=== PATIENT | female | born 1935 | race Caucasian/White ===

== ENCOUNTER 2017-03-15 18:51 | Emergency (ER) | payer MEDICARE, OTHER ==
--- NOTE | 2017-03-15 20:15 | C.PDOC ---
History Of Present Illness The patient presents today with complaints of intermittent episodes of nausea, vomiting and decreased PO intake for the past month. Patient has a history of insulin dependent diabetes and her daughter serves as primary historian as the patient has dementia. The patient's daughter offers no other medical complaints. Time Seen by Provider: 03/15/17 20:14 Chief Complaint (Nursing): GI Problem History Per: Family History/Exam Limitations: clinical condition (dementia) Onset/Duration Of Symptoms: Intermittent Episodes (for a month) Current Symptoms Are (Timing): Still Present Associated Symptoms: Nausea, Vomiting, Loss Of Appetite. denies: Fever, Chills Recent travel outside of the [place]: No Abnormal Vaginal Bleeding: No Past Medical History Reviewed: Historical Data, Nursing Documentation, Vital Signs Vital Signs: Last Vital Signs Temp 97.6 F 03/15/17 21:45 Pulse 69 03/15/17 21:45 Resp 18 03/15/17 21:45 BP 159/80 H 03/15/17 21:45 Pulse Ox 98 03/15/17 21:45 - Medical History PMH: Anemia, Dementia, Depression, HTN, Hypercholesterolemia (hyperlipidemia), Hypothyroidism, Chronic Kidney Disease (CKD) Surgical History: No Surg Hx Family History: States: Unknown Family Hx - Social History Hx Alcohol Use: No Hx Substance Use: No Review Of Systems Constitutional: Negative for: Fever, Chills Gastrointestinal: Positive for: Nausea, Vomiting, Other (decreased PO intake) Physical Exam - Physical Exam Appears: Non-toxic, No Acute Distress Skin: Warm, Dry Head: Normacephalic Eye(s): bilateral: Normal Inspection Lips: Other (dry) Neck: Supple Chest: Symmetrical Cardiovascular: Rhythm Regular Respiratory: No Decreased Breath Sounds, No Accessory Muscle Use Gastrointestinal/Abdominal: Bowel Sounds, Soft, No Tenderness, Distention (mild) Extremity: No Deformity, No Swelling Neurological/Psych: No Oriented x3 (Awake, alert and oriented x 2) ED Course And Treatment - Laboratory Results Result Diagrams: 03/15/17 20:36 03/15/17 20:36 O2 Sat by Pulse Oximetry: 97 (RA) Pulse Ox Interpretation: Normal Progress Note: Labs, pepcid, zofran and IV fluids ordered Reevaluation Time: 23:11 Reassessment Condition: Improved Disposition Counseled Patient/Family Regarding: Studies Performed, Diagnosis, Need For Followup, Rx Given - Disposition Referrals: Nacho Pierre MD [Staff Provider] - Disposition: HOME/ ROUTINE Disposition Time: 20:15 Condition: FAIR Prescriptions: Ondansetron ODT [Zofran ODT] 1 odt PO BID PRN #10 odt PRN Reason: Nausea/Vomiting Instructions: Abdominal Pain (ED), Acute Nausea and Vomiting (ED), Diverticulosis (ED), Diverticulosis Diet (ED) Forms: [employer] (Dominican), Accompanied To ED By: Print Language: BENGALI - Clinical Impression Clinical Impression: Abdominal pain, Vomiting - Scribe Statement The provider has reviewed the documentation as recorded by the Sarabjit Carney Provider Attestation: All medical record entries made by the Sarabjit were at my direction and personally dictated by me. I have reviewed the chart and agree that the record accurately reflects my personal performance of the history, physical exam, medical decision making, and the department course for this patient. I have also personally directed, reviewed, and agree with the discharge instructions and disposition.
[2017-03-15] MEDS ORDERED: Sodium Chloride 0.9% 1,000 ML IV ONE (20:20)
[2017-03-15] MEDS ORDERED: Sodium Chloride 0.9% 1,000 ML ONE (20:37)
[2017-03-15 20:47] LABS: BASO % 0.5 % (0.0-2.0); EOS # 0.1 K/uL (0.0-0.7); EOS % 1.4 % (0.0-4.0); HEMATOCRIT 31.2 % (34.0-47.0); LYMPH # 2.1 K/uL (1.0-4.3); LYMPH % 25.4 % (20.0-40.0); MEAN CELL VOLUME 92.9 fL (81.0-99.0); MEAN CORPUSCULAR HEMOGLOBIN 32.1 pg (27.0-31.0); MEAN CORPUSCULAR HGB CONC 34.6 g/dL (33.0-37.0); MEAN PLATELET VOLUME 8.3 fL (7.2-11.7); MONO # 0.5 K/uL (0.0-0.8); MONO % 6.2 % (0.0-10.0); RED CELL DISTRIBUTION WIDTH 15.2 % (11.5-14.5); WHITE BLOOD COUNT 8.2 K/uL (4.8-10.8)
[2017-03-15 20:56] LABS: CHLORIDE 98 mmol/L (98-107); SODIUM 138 mmol/L (132-148)
[2017-03-15 20:59] LABS: ALB/GLOB RATIO 1.3 (1.0-2.1); ALKALINE PHOSPHATASE 69 U/L (38-126); ALT/SGPT 20 U/L (9-52); AST/SGOT 21 U/L (14-36); BILIRUBIN,TOTAL 0.6 mg/dL (0.2-1.3); BLOOD UREA NITROGEN 28 mg/dL (7-17); CALCIUM 9.2 mg/dl (8.6-10.4); CARBON DIOXIDE 25 mmol/L (22-30); GFR AFRICAN-AMERICAN 33; GLUCOSE,RANDOM 107 mg/dL (65-105); TOTAL PROTEIN 7.6 g/dL (6.3-8.3)
[2017-03-15 21:34] LABS: RBC URINE < 1 /hpf (0-3); URINE BILIRUBIN NEGATIVE (NEGATIVE); URINE BLOOD NEGATIVE (NEGATIVE); URINE COLOR Yellow (YELLOW); URINE GLUCOSE (UA) NORMAL (Normal); URINE KETONE NEGATIVE (NEGATIVE); URINE LEUKOCYTE ESTERASE NEG Leu/uL (Negative); URINE PROTEIN NEGATIVE (NEGATIVE); URINE UROBILINOGEN NORMAL mg/dL (0.2-1.0); WBC URINE 1 /hpf (0-5)
[2017-03-15 21:56] VITALS: TEMP 97.6
--- NOTE | 2017-03-15 22:56 | CT ---
EXAM: CT Abdomen and Pelvis Without Intravenous Contrast CLINICAL HISTORY: 81 years old, female; Pain; Abdominal pain; Generalized; Additional info: Abd pain, vomiting diabetic TECHNIQUE: Axial computed tomography images of the abdomen and pelvis without intravenous contrast. All CT scans at this facility use one or more dose reduction techniques, viz.: automated exposure control; ma/kV adjustment per patient size (including targeted exams where dose is matched to indication; i.e. head); or iterative reconstruction technique. Coronal and sagittal reformatted images were created and reviewed. COMPARISON: No relevant prior studies available. FINDINGS: Lower thorax: Mild cardiomegaly. Small hiatal hernia. ABDOMEN: Liver: Unremarkable. Gallbladder and bile ducts: Unremarkable. No calcified stones. No ductal dilation. Pancreas: Unremarkable. No ductal dilation. Spleen: Unremarkable. No splenomegaly. Adrenals: Unremarkable. No mass. Kidneys and ureters: Multiple bilateral renal hypodense lesions, most consistent with cysts. Small fat containing umbilical hernia. No obstructing stones. No hydronephrosis. Stomach and bowel: Left-sided colonic diverticulosis. Appendix: No findings to suggest acute appendicitis. PELVIS: Bladder: Unremarkable. No stones. Reproductive: Calcified uterine fibroid. ABDOMEN and PELVIS: Intraperitoneal space: Trace fluid in pelvis. No free air. Bones/joints: Diffuse spinal degenerative changes. Concavity superior endplate L3, likely old. No acute fracture. No dislocation. Soft tissues: See above. Vasculature: Atherosclerotic vascular disease. No abdominal aortic aneurysm. Lymph nodes: Unremarkable. No enlarged lymph nodes. IMPRESSION: 1. No evidence of bowel obstruction. 2. Diverticulosis, without evidence of acute diverticulitis. 3. Remainder of findings as above.
[2017-03-15 23:24] VITALS: BP 146/79; PULSE 78; RESP 16; O2SAT 98
== END 2017-03-15 23:24 | disposition home or self-care (01) ==
LOC: C.ER 18:51
DX: R11.10 Vomiting, unspecified (principal); R10.9 Unspecified abdominal pain; D64.9 Anemia, unspecified; I12.9 Hypertensive chronic kidney disease with stage 1 through stage 4 chronic kidney disease, or unspecified chronic kidney disease; N18.9 Chronic kidney disease, unspecified
CPT/HCPCS: 74176; 80053; 81001; 82009; 83690; 85025; 96361; 96374; 96375; 99284; J2405; J7040

== ENCOUNTER 2017-07-19 11:46 | Observation (INO) | payer MEDICARE, OTHER ==
[2017-07-19 13:33] LABS: BASO % 0.3 % (0.0-2.0); EOS # 0.4 K/uL (0.0-0.7); EOS % 5.1 % (0.0-4.0); HEMOGLOBIN 10.3 g/dL (11.0-16.0); LYMPH % 23.3 % (20.0-40.0); MEAN CELL VOLUME 92.9 fL (81.0-99.0); MEAN CORPUSCULAR HEMOGLOBIN 31.8 pg (27.0-31.0); MEAN CORPUSCULAR HGB CONC 34.2 g/dL (33.0-37.0); MEAN PLATELET VOLUME 9.1 fL (7.2-11.7); MONO # 0.7 K/uL (0.0-0.8); MONO % 7.8 % (0.0-10.0); NEUT # 5.5 K/uL (1.8-7.0); NEUT % 63.5 % (50.0-75.0); RBC 3.25 Mil/uL (3.80-5.20); RED CELL DISTRIBUTION WIDTH 14.3 % (11.5-14.5); WHITE BLOOD COUNT 8.7 K/uL (4.8-10.8)
[2017-07-19 13:45] LABS: ALB/GLOB RATIO 1.1 (1.0-2.1); ALT/SGPT 13 U/L (9-52); AST/SGOT 16 U/L (14-36); BLOOD UREA NITROGEN 29 mg/dL (7-17); CALCIUM 8.7 mg/dl (8.6-10.4); GFR AFRICAN-AMERICAN 29; GFR NON-AFRICAN AMERICAN 24
[2017-07-19 13:46] LABS: INR 1.1; PROTHROMBIN TIME 12.9 SECONDS (9.7-12.2)
--- NOTE | 2017-07-19 13:49 | RAD ---
HISTORY: cough/sob COMPARISON: None available. TECHNIQUE: Chest PA and lateral FINDINGS: Examination limited by habitus. LUNGS: Bilateral hilar prominence. No focal consolidation. Please note that chest x-ray has limited sensitivity for the detection of pulmonary masses. PLEURA: Biapical pleural thickening. Lateral right mild pleural thickening. No significant pleural effusion identified. No definite pneumothorax . CARDIOVASCULAR: Cardiomegaly. Dense atherosclerotic calcifications of the aortic knob. OSSEOUS STRUCTURES: Degenerative changes. Osseous demineralization. VISUALIZED UPPER ABDOMEN: Unremarkable. OTHER FINDINGS: None. IMPRESSION: Bilateral hilar prominence. Biapical pleural thickening and mild right lateral pleural thickening. Cardiomegaly. Dense atherosclerotic calcifications the aorta.
[2017-07-19 13:56] LABS: CK-MB 0.44 ng/mL (0.0-3.38)
--- NOTE | 2017-07-19 15:27 | C.PDOC ---
History Of Present Illness 81yo female, presents to ED with complaints of cough and chest pain. Patient states her cough has been present for the past 5 days and for the past 3 days, she has had mid-sternal chest pain. She denies any associated fever, chills, nausea or vomiting. She has no other medical complaints. Of note, patient has dementia so a full history is unavailable. Time Seen by Provider: 07/19/17 12:41 Chief Complaint (Nursing): Chest Pain History Per: Patient History/Exam Limitations: no limitations Onset/Duration Of Symptoms: Days Current Symptoms Are (Timing): Still Present Past Medical History Reviewed: Historical Data, Nursing Documentation, Vital Signs Vital Signs: Last Vital Signs Temp 98.5 F 07/19/17 15:24 Pulse 62 07/19/17 18:49 Resp 18 07/19/17 18:49 BP 106/51 L 07/19/17 18:49 Pulse Ox 98 07/19/17 18:49 - Medical History PMH: Anemia, Dementia, Depression, HTN, Hypercholesterolemia (hyperlipidemia), Hypothyroidism, Chronic Kidney Disease (CKD) Surgical History: No Surg Hx Family History: States: Unknown Family Hx - Social History Hx Alcohol Use: No Hx Substance Use: No - Immunization History Hx Tetanus Toxoid Vaccination: Yes Hx Influenza Vaccination: Yes Hx Pneumococcal Vaccination: Yes Review Of Systems Except As Marked, All Systems Reviewed And Found Negative. Constitutional: Negative for: Fever, Chills Cardiovascular: Positive for: Chest Pain Respiratory: Positive for: Cough Physical Exam - Physical Exam Appears: Non-toxic, No Acute Distress Skin: Normal Color, Warm Head: Atraumatic, Normacephalic Eye(s): bilateral: Normal Inspection Nose: Normal Oral Mucosa: Moist Neck: Normal ROM, Supple Chest: Symmetrical, No Tenderness Cardiovascular: Rhythm Regular, Other (no active cough during exam) Respiratory: Normal Breath Sounds, No Wheezing Gastrointestinal/Abdominal: Normal Exam, Soft, No Tenderness ED Course And Treatment - Laboratory Results Result Diagrams: 07/19/17 13:23 07/19/17 13:23 ECG Rhythm: Sinus Rhythm, Nonspecific Changes (ST/T wave) Rate From EC O2 Sat by Pulse Oximetry: 98 (RA) Pulse Ox Interpretation: Normal - Physician Consult Information Physician Contacted: Kristi Solorio Outcome Of Conversation: accepted to tele for observation Medical Decision Making Medical Decision Making: Impression: Cough and chest pain Plan: -- Labs -- EKG -- Aspirin 243 mg PO -- Rapid Flu Reassessment: Labs reviewed and indicates chronic renal insufficiency which is slightly worse compared to prior on 03/2017. Patient also has history of anemia but hemoglobin levels are stable compared to prior on 03/2017 Time: [address] Solorio, hospitalist [employer] who admits for Dr. Pierre. Patient to be admitted to OBS-TELE. Disposition - Disposition Disposition Time: 15:55 Condition: FAIR - Clinical Impression Clinical Impression: Chest pain - PA / RN CLINICAL DOCUMENTATION SPECIALIST / Resident Statement MD/DO has reviewed & agrees with the documentation as recorded. - Scribe Statement The provider has reviewed the documentation as recorded by the Bakariibe Yuliya Carney Provider Scribe Attestation: All medical record entries made by the Bakariibmarc were at my direction and personally dictated by me. I have reviewed the chart and agree that the record accurately reflects my personal performance of the history, physical exam, medical decision making, and the department course for this patient. I have also personally directed, reviewed, and agree with the discharge instructions and disposition. Decision To Admit - Pt Status Changed To: Hospital Disposition Of: Observation - . Bed Request Type: Telemetry Admitting Physician: Kristi Solorio Patient Diagnosis: Chest pain
[2017-07-19] MEDS ORDERED: Aspirin 325 mg EC Tablets PO STA (15:45)
[2017-07-19 15:49] LABS: SQUAMOUS EPITHIAL < 1 /hpf (0-5); URINE BILIRUBIN NEGATIVE (NEGATIVE); URINE BLOOD NEGATIVE (NEGATIVE); URINE CLARITY Clear (Clear); URINE COLOR Yellow (YELLOW); URINE GLUCOSE (UA) NORMAL (Normal); URINE LEUKOCYTE ESTERASE NEG Leu/uL (Negative); URINE NITRATE NEGATIVE (NEGATIVE); URINE PROTEIN NEGATIVE (NEGATIVE); URINE UROBILINOGEN NORMAL mg/dL (0.2-1.0)
[2017-07-19] MEDS ORDERED: Aspirin 325 mg EC Tablets PO ONE (15:54)
--- NOTE | 2017-07-19 17:29 | CP.PCM.HP ---
<Earle Hammond - Last Filed: 07/19/17 19:58> History of Present Illness - History of Present Illness History of Present Illness: Dr. Alejo Hospitalist Service, Earle Hammond Operations Vice President-PGY -1 81 year old female with a past medical history of anemia, Depression, Hypertension, Hyperlipidemia, hypothyroidism, CKD, and Type 2 Diabetes who comes into [facility] emergency department complaining of cough symptoms for the past five days. The patient reports productive yellow phlegm production and shortness of breath in conjunction with the presenting complaint. The patient also reports some para-sternal chest pain that is associated with deep breathing. The patient denies any alleviating or modifying factors. The patient also reports a sick contact in her daughter with whom she lives with. The patient denies any headaches, lightheadedness, dizziness, sore throat, palpitations, abdominal pain, numbness or tingling in the extremities, or any other complaints. PMD: Dr. Singh Nephrology: Dr. Fatima Psych: Dr. Soriano Gastroenterology: Dr. Skinner Past medical history: Anemia, depression, hypertension, hyperlipidemia, hypothyroid, CKD, Type 2 DM Medications: MAR reviewed Allergies: Cephalexin monohydrate, penicillin V Past surgical history: Left vein surgery?, Tumor removal of left breast Family history: Denies Social history: Drinks a glass a wine twice a week. Denies tobacco use. Denies illicit drug use. Lives with daughter. Able to ambulate with cane. Able to perform ADL's. Present on Admission - Present on Admission Any Indicators Present on Admission: No Review of Systems - Constitutional Constitutional: absent: Chills, Frequent Falls, Headache, Night Sweats, Snoring , Weakness - EENT Eyes: absent: Blurred Vision, Discharge, Loss of Peripheral Vision, Other Visual Disturbances, Loss of Vision Ears: absent: Ear Discharge, Ear Pain, Dizziness Nose/Mouth/Throat: absent: Nasal Congestion, Nose Pain, Bleeding Gums, Dysphagia , Halitosis, Facial Pain, Neck Pain - Cardiovascular Cardiovascular: Chest Pain. absent: Chest Pain at Rest, Chest Pain with Activity, Diaphoresis, Leg Edema, Lightheadedness, Palpitations, Pedal Edema, Radiating Pain, Syncope - Respiratory Respiratory: Pain on Inspiration. absent: Hemoptysis, Chest Congestion, Change in Mucous Color - Gastrointestinal Gastrointestinal: absent: Abdominal Pain, Belching, Dyspepsia, Heartburn, Loose Stools, Melena, Nausea - Genitourinary Genitourinary: absent: Difficulty Urinating, Pyuria, Nocturia, Urinary Urgency - Musculoskeletal Musculoskeletal: absent: Abnormal Gait, Myalgias, Neck Pain, Tingling - Integumentary Integumentary: absent: Lesions, New Lesions, Swelling, Unusual Bruising - Neurological Neurological: absent: Abnormal Hearing, Burning Sensations, Numbness, Tingling, Vertigo, Weakness - Psychiatric Psychiatric: absent: Anxiety, Change in Appetite, Panic Attacks - Endocrine Endocrine: absent: Change in Body Appearance, Excessive Sweating, Polydipsia, Polyphagia, Polyuria Past Patient History - Past Social History Smoking Status: Never Smoked - CARDIAC Hx Hypercholesterolemia: Yes (hyperlipidemia) Hx Hypertension: Yes - NEUROLOGICAL Hx Dementia: Yes - RENAL Hx Chronic Kidney Disease: Yes (CKD) - ENDOCRINE/METABOLIC Hx Hypothyroidism: Yes - HEMATOLOGICAL/ONCOLOGICAL Hx Anemia: Yes - GENITOURINARY/GYNECOLOGICAL Hx Genitourinary Disorders: Yes (hyperuricemia) - PSYCHIATRIC Hx Depression: Yes Hx Substance Use: No - SURGICAL HISTORY Hx Surgeries: Yes Hx Breast Biopsy: Yes (lumpectomy left side) Hx Vascular Surgery: Yes (left leg) Meds Home Medications: Home Medication List Medication Instructions Recorded Confirmed Type Moxifloxacin [Avelox] 400 mg PO DAILY #4 tab 07/20/17 Rx Allergies/Adverse Reactions: Allergies Allergy/AdvReac Type Severity Reaction Status Date / Time cephalexin monohydrate Allergy Verified 07/19/17 12:07 [From Keflex] penicillin V Allergy Verified 07/19/17 12:07 Physical Exam - Head Exam Head Exam: ATRAUMATIC, NORMAL INSPECTION, NORMOCEPHALIC - Eye Exam Eye Exam: EOMI, Normal appearance, PERRL Pupil Exam: NORMAL ACCOMODATION, PERRL. absent: Irregular, Unequal - ENT Exam ENT Exam: Mucous Membranes Moist, Normal Exam, Normal Oropharynx - Neck Exam Neck exam: Positive for: Normal Inspection. Negative for: Lymphadenopathy, Thyromegaly - Respiratory Exam Respiratory Exam: Clear to Auscultation Bilateral, NORMAL BREATHING PATTERN. absent: Chest Wall Tenderness, Prolonged Expiratory Phase, Respiratory Distress - Cardiovascular Exam Cardiovascular Exam: REGULAR RHYTHM, RRR, +S1, +S2. absent: Gallop, Rubs - GI/Abdominal Exam GI & Abdominal Exam: Normal Bowel Sounds, Soft. absent: Hypoactive Bowel Sounds , Organomegaly, Tenderness - Extremities Exam Extremities exam: Positive for: full ROM, normal inspection. Negative for: joint swelling, pedal edema, tenderness - Back Exam Back exam: NORMAL INSPECTION. absent: CVA tenderness (L), CVA tenderness (R), paraspinal tenderness - Neurological Exam Neurological exam: Alert, CN II-XII Intact, Normal Gait, Oriented x3 - Psychiatric Exam Psychiatric exam: Normal Affect, Normal Mood - Skin Skin Exam: Dry, Intact, Normal Color Results - Vital Signs Recent Vital Signs: Last Vital Signs Temp 98.5 F 07/19/17 15:24 Pulse 63 07/19/17 14:43 Resp 16 07/19/17 14:43 BP 133/46 L 07/19/17 14:43 Pulse Ox 98 07/19/17 16:43 - Labs Result Diagrams: 07/19/17 13:23 07/19/17 13:23 Labs: Laboratory Results - last 24 hr 07/19/17 07/19/17 07/19/17 13:17 13:23 13:23 WBC 8.7 RBC 3.25 L Hgb 10.3 L Hct 30.1 L MCV 92.9 MCH 31.8 H MCHC 34.2 RDW 14.3 Plt Count 211 MPV 9.1 Neut % (Auto) 63.5 Lymph % (Auto) 23.3 Gentry % (Auto) 7.8 Eos % (Auto) 5.1 H Baso % (Auto) 0.3 Neut # 5.5 Lymph # 2.0 Gentry # 0.7 Eos # 0.4 Baso # 0.0 PT 12.9 H INR 1.1 APTT 27 Sodium Potassium Chloride Carbon Dioxide Anion Gap BUN Creatinine Est GFR ( Amer) Est GFR (Non-Af Amer) Random Glucose Calcium Total Bilirubin AST ALT Alkaline Phosphatase Total Creatine Kinase CK-MB (Mass) Troponin I Total Protein Albumin Globulin Albumin/Globulin Ratio Urine Color Urine Clarity Urine pH Ur Specific [place] Urine Protein Urine Glucose (UA) Urine Ketones Urine Blood Urine Nitrate Urine Bilirubin Urine Urobilinogen Ur Leukocyte Esterase Urine WBC (Auto) Urine RBC (Auto) Ur Squamous Epith Cells Influenza Typ A,B (EIA) Negative for flu a/b 07/19/17 07/19/17 13:23 15:25 WBC RBC Hgb Hct MCV MCH MCHC RDW Plt Count MPV Neut % (Auto) Lymph % (Auto) Gentry % (Auto) Eos % (Auto) Baso % (Auto) Neut # Lymph # Gentry # Eos # Baso # PT INR APTT Sodium 134 Potassium 3.4 L Chloride 95 L Carbon Dioxide 27 Anion Gap 15 BUN 29 H Creatinine 2.0 H Est GFR ( Amer) 29 Est GFR (Non-Af Amer) 24 Random Glucose 125 H Calcium 8.7 Total Bilirubin 0.5 AST 16 ALT 13 Alkaline Phosphatase 69 Total Creatine Kinase 54 CK-MB (Mass) 0.44 Troponin I < 0.0120 Total Protein 7.7 Albumin 4.0 Globulin 3.7 Albumin/Globulin Ratio 1.1 Urine Color Yellow Urine Clarity Clear Urine pH 5.0 Ur Specific [place] 1.015 Urine Protein Negative Urine Glucose (UA) Normal Urine Ketones Negative Urine Blood Negative Urine Nitrate Negative Urine Bilirubin Negative Urine Urobilinogen Normal Ur Leukocyte Esterase Neg Urine WBC (Auto) 1 Urine RBC (Auto) < 1 Ur Squamous Epith Cells < 1 Influenza Typ A,B (EIA) Assessment & Plan - Assessment and Plan (Free Text) Assessment: 81 year old female with a past medical history of anemia, depression, hypertension, hyperlipidemia, hypothyroid, ckd and Type 2 DM who is being admitted for bronchitis. Plan: 1. Bronchitis -CXR in the ED: bilateral hilar prominence, biapical pleural thickening and mild right lateral pleural thickening, cardiomegaly, and dense atherosclerotic calcification of the aorta -Duonebs Q4 prn -Avalox 400mg IV q24 -Robutussin PRN 2. Hypertension -Restart home medications 3. Diabetes -Hold Metformin. -ISS low -Carb consistent diet. Accuchecks ACHS -Maintain euglycemia 4.Hyperlipidemia -Restart home medications 5.Depression -Restart home medications Prophylaxis -Heparin 5000units q12 -Pepcid 20mg BID <Bridger Fuller - Last Filed: 07/20/17 18:16> Results - Vital Signs Recent Vital Signs: Last Vital Signs Temp 97.8 F 07/20/17 16:22 Pulse 72 07/20/17 16:22 Resp 20 07/20/17 16:22 BP 122/72 07/20/17 16:22 Pulse Ox 92 L 07/20/17 16:22 - Labs Result Diagrams: 07/20/17 08:18 07/20/17 08:18 Labs: Laboratory Results - last 24 hr 07/19/17 07/20/17 07/20/17 17:47 08:18 08:18 WBC 7.2 RBC 3.02 L Hgb 9.6 L Hct 27.8 L MCV 92.2 MCH 32.0 H MCHC 34.7 RDW 14.7 H Plt Count 211 MPV 9.4 Neut % (Auto) 49.7 L Lymph % (Auto) 35.5 Gentry % (Auto) 8.5 Eos % (Auto) 5.9 H Baso % (Auto) 0.4 Neut # 3.6 Lymph # 2.5 Gentry # 0.6 Eos # 0.4 Baso # 0.0 Sodium 133 Potassium 3.8 Chloride 98 Carbon Dioxide 30 Anion Gap 9 L BUN 33 H Creatinine 1.9 H Est GFR ( Amer) 31 Est GFR (Non-Af Amer) 25 POC Glucose (mg/dL) 142 H Random Glucose 84 Calcium 8.6 Total Bilirubin 0.5 AST 22 ALT 13 Alkaline Phosphatase 66 Troponin I < 0.0120 Total Protein 7.1 Albumin 3.6 Globulin 3.5 Albumin/Globulin Ratio 1.0 07/20/17 11:38 WBC RBC Hgb Hct MCV MCH MCHC RDW Plt Count MPV Neut % (Auto) Lymph % (Auto) Gentry % (Auto) Eos % (Auto) Baso % (Auto) Neut # Lymph # Gentry # Eos # Baso # Sodium Potassium Chloride Carbon Dioxide Anion Gap BUN Creatinine Est GFR ( Amer) Est GFR (Non-Af Amer) POC Glucose (mg/dL) 143 H Random Glucose Calcium Total Bilirubin AST ALT Alkaline Phosphatase Troponin I Total Protein Albumin Globulin Albumin/Globulin Ratio Attending/Attestation - Attestation I have personally seen and examined this patient.: Yes I have fully participated in the care of the patient.: Yes I have reviewed all pertinent clinical information: Yes Notes (Text): Patient was seen and examined has cough,denies shortness of breath,denies chest pain at rest ,Had chest pain with cough,has yellow sputum denies fever Has no wheezing chest xray biapical pleural thickening we will admit for observation and start on avelox do troponin and ekg d/w daughter d/c home if stable in the morning
[2017-07-19] MEDS ORDERED: guaiFENesin 100 mg/5 ml Syrup UD PO PRN (17:45)
[2017-07-19] MEDS ORDERED: Moxifloxacin IV 400mg/250ml NS 400 MG/250 ML BAG IVPB SCH (17:45)
[2017-07-20 01:19] VITALS: RESP 20
[2017-07-20] MEDS ORDERED: Levothyroxine 75 MCG TAB PO SCH (06:30)
[2017-07-20 08:41] LABS: BASO % 0.4 % (0.0-2.0); EOS # 0.4 K/uL (0.0-0.7); EOS % 5.9 % (0.0-4.0); HEMOGLOBIN 9.6 g/dL (11.0-16.0); LYMPH # 2.5 K/uL (1.0-4.3); LYMPH % 35.5 % (20.0-40.0); MEAN CELL VOLUME 92.2 fL (81.0-99.0); MEAN CORPUSCULAR HGB CONC 34.7 g/dL (33.0-37.0); MEAN PLATELET VOLUME 9.4 fL (7.2-11.7); MONO # 0.6 K/uL (0.0-0.8); MONO % 8.5 % (0.0-10.0); NEUT # 3.6 K/uL (1.8-7.0); NEUT % 49.7 % (50.0-75.0); RBC 3.02 Mil/uL (3.80-5.20); RED CELL DISTRIBUTION WIDTH 14.7 % (11.5-14.5); WHITE BLOOD COUNT 7.2 K/uL (4.8-10.8)
[2017-07-20 08:58] LABS: ALBUMIN 3.6 g/dL (3.5-5.0); ALT/SGPT 13 U/L (9-52); AST/SGOT 22 U/L (14-36); BLOOD UREA NITROGEN 33 mg/dL (7-17); CALCIUM 8.6 mg/dl (8.6-10.4); GFR AFRICAN-AMERICAN 31; GFR NON-AFRICAN AMERICAN 25
[2017-07-20] MEDS: Albuterol-Ipratrop 3 mg / 0.5 (3 ml) UD INH SCH ×2 (09:45→13:51)
[2017-07-20] MEDS ORDERED: Venlafaxine 75 mg ER Cap PO SCH (10:00)
[2017-07-20] MEDS ORDERED: Metoprolol Succinate 200 mg XL Tab PO SCH (10:00)
[2017-07-20 16:23] VITALS: BP 122/72; PULSE 72; TEMP 97.8
[2017-07-20 20:18] VITALS: O2SAT 97
--- NOTE | 2017-07-20 22:41 | CP.PCM.DIS ---
Provider - Provider Date of Admission: 07/19/17 15:47 Attending physician: Bridger Fuller MD Primary care physician: dorota PMMartín, seen last month, daughter does not remember name Consults: none Time Spent in preparation of Discharge (in minutes): 30 Hospital Course - Lab Results Lab Results: Most Recent Lab Values WBC 7.2 K/uL (4.8-10.8) 07/20/17 08:18 RBC 3.02 Mil/uL (3.80-5.20) L 07/20/17 08:18 Hgb 9.6 g/dL (11.0-16.0) L 07/20/17 08:18 Hct 27.8 % (34.0-47.0) L 07/20/17 08:18 MCV 92.2 fL (81.0-99.0) 07/20/17 08:18 MCH 32.0 pg (27.0-31.0) H 07/20/17 08:18 MCHC 34.7 g/dL (33.0-37.0) 07/20/17 08:18 RDW 14.7 % (11.5-14.5) H 07/20/17 08:18 Plt Count 211 K/uL (130-400) 07/20/17 08:18 MPV 9.4 fL (7.2-11.7) 07/20/17 08:18 Neut % (Auto) 49.7 % (50.0-75.0) L 07/20/17 08:18 Lymph % (Auto) 35.5 % (20.0-40.0) 07/20/17 08:18 [place] % (Auto) 8.5 % (0.0-10.0) 07/20/17 08:18 Eos % (Auto) 5.9 % (0.0-4.0) H 07/20/17 08:18 Baso % (Auto) 0.4 % (0.0-2.0) 07/20/17 08:18 Neut # 3.6 K/uL (1.8-7.0) 07/20/17 08:18 Lymph # 2.5 K/uL (1.0-4.3) 07/20/17 08:18 [place] # 0.6 K/uL (0.0-0.8) 07/20/17 08:18 Eos # 0.4 K/uL (0.0-0.7) 07/20/17 08:18 Baso # 0.0 K/uL (0.0-0.2) 07/20/17 08:18 PT 12.9 SECONDS (9.7-12.2) H 07/19/17 13:23 INR 1.1 07/19/17 13:23 APTT 27 SECONDS (21-34) 07/19/17 13:23 Sodium 133 mmol/L (132-148) 07/20/17 08:18 Potassium 3.8 mmol/L (3.6-5.2) 07/20/17 08:18 Chloride 98 mmol/L (98-107) 07/20/17 08:18 Carbon Dioxide 30 mmol/L (22-30) 07/20/17 08:18 Anion Gap 9 (10-20) L 07/20/17 08:18 BUN 33 mg/dL (7-17) H 07/20/17 08:18 Creatinine 1.9 mg/dL (0.7-1.2) H 07/20/17 08:18 Est GFR ( Amer) 31 07/20/17 08:18 Est GFR (Non-Af Amer) 25 07/20/17 08:18 POC Glucose (mg/dL) 143 mg/dL (65-110) H 07/20/17 11:38 Random Glucose 84 mg/dL (65-105) 07/20/17 08:18 Calcium 8.6 mg/dl (8.6-10.4) 07/20/17 08:18 Total Bilirubin 0.5 mg/dL (0.2-1.3) 07/20/17 08:18 AST 22 U/L (14-36) 07/20/17 08:18 ALT 13 U/L (9-52) 07/20/17 08:18 Alkaline Phosphatase 66 U/L (38-126) 07/20/17 08:18 Total Creatine Kinase 54 U/L (30-135) 07/19/17 13:23 CK-MB (Mass) 0.44 ng/mL (0.0-3.38) 07/19/17 13:23 Troponin I < 0.0120 ng/mL (0.00-0.120) 07/20/17 08:18 Total Protein 7.1 g/dL (6.3-8.3) 07/20/17 08:18 Albumin 3.6 g/dL (3.5-5.0) 07/20/17 08:18 Globulin 3.5 gm/dL (2.2-3.9) 07/20/17 08:18 Albumin/Globulin Ratio 1.0 (1.0-2.1) 07/20/17 08:18 Urine Color Yellow (YELLOW) 07/19/17 15:25 Urine Clarity Clear (Clear) 07/19/17 15:25 Urine pH 5.0 (5.0-8.0) 07/19/17 15:25 Ur Specific [place] 1.015 (1.003-1.030) 07/19/17 15:25 Urine Protein Negative mg/dL (NEGATIVE) 07/19/17 15:25 Urine Glucose (UA) Normal mg/dL (Normal) 07/19/17 15:25 Urine Ketones Negative mg/dL (NEGATIVE) 07/19/17 15:25 Urine Blood Negative (NEGATIVE) 07/19/17 15:25 Urine Nitrate Negative (NEGATIVE) 07/19/17 15:25 Urine Bilirubin Negative (NEGATIVE) 07/19/17 15:25 Urine Urobilinogen Normal mg/dL (0.2-1.0) 07/19/17 15:25 Ur Leukocyte Esterase Neg Cyn/uL (Negative) 07/19/17 15:25 Urine WBC (Auto) 1 /hpf (0-5) 07/19/17 15:25 Urine RBC (Auto) < 1 /hpf (0-3) 07/19/17 15:25 Ur Squamous Epith Cells < 1 /hpf (0-5) 07/19/17 15:25 Influenza Typ A,B (EIA) Negative for flu a/b (NEGATIVE) 07/19/17 13:17 - Hospital Course Hospital Course: Upon hospital admission: 81 year old female with a past medical history of anemia, Depression, Hypertension, Hyperlipidemia, hypothyroidism, CKD, and Type 2 Diabetes who comes into [facility] emergency department complaining of cough symptoms for the past five days. The patient reports productive yellow phlegm production and shortness of breath in conjunction with the presenting complaint. The patient also reports some para-sternal chest pain that is associated with deep breathing. The patient denies any alleviating or modifying factors. The patient also reports a sick contact in her daughter with whom she lives with. The patient denies any headaches, lightheadedness, dizziness, sore throat, palpitations, abdominal pain, numbness or tingling in the extremities, or any other complaints. Past medical history: Anemia, depression, hypertension, hyperlipidemia, hypothyroid, CKD, Type 2 DM Medications: MAR reviewed Allergies: Cephalexin monohydrate, penicillin V Past surgical history: Left vein surgery?, Tumor removal of left breast Family history: Denies Social history: Drinks a glass a wine twice a week. Denies tobacco use. Denies illicit drug use. Lives with daughter. Able to ambulate with cane. Able to perform ADL's. During hospital course, the patient was evaluated and treated for the followin. Bronchitis for which CXR showed bilateral hilar prominence, biapical pleural thickening and mild right lateral pleural thickening, cardiomegaly, and dense atherosclerotic calcification of the aorta. She denied a history of TB. No h/o previous abnormal chest x ray; no known asbestors exposure. She responded well to Duonebs Q4 prn, Avelox 400mg IV q24; and Robutussin PRN. 2. Her home medications were restarted for her hx of HTN, HLD, and Depression. 3. Her hx of Diabetes was treated with ISS, carb consistent diet; Metformin was held. 4. Work up came back with negative DIANNE, negative urine analysis, and negative Flu. The patient did well during this admission, responded well to treatment, and was deemed stable for discharge. Upon hospital discharge, the patient was provided with the following instructions: Patient is stable for discharge per Dr. Fuller. Patient should: 1. Resume all medications as outlined in this document. Additionally, patient should take the new medications listed below (scripts provided). 2. Please make an appointment and follow up with your Primary Doctor within one week of discharge. 3. Please discuss your XRay finding of Pleural thickening with your PMD. You may have had prior imaging performed at [facility]. 4. Please followup with your Farrowing Manager regarding Chronic Renal Insufficiency. Patient should return to ED immediately if symptoms return or worsen. Instructions discussed with patient who understood and agreed. Newly prescribed medications: Avelox 400mg Oral daily #4 (take for 4 days) This is a summary of the patient's hospital admission, see chart for comprehensive detail. - Date & Time of H&P Date of H&P: 07/19/17 Time of H&P: 17:25 Discharge Exam - Head Exam Head Exam: ATRAUMATIC, NORMAL INSPECTION, NORMOCEPHALIC - Additional Findings Additional findings: - Head Exam Head Exam: ATRAUMATIC, NORMAL INSPECTION, NORMOCEPHALIC - Eye Exam Eye Exam: EOMI, Normal appearance, PERRL Pupil Exam: NORMAL ACCOMODATION, PERRL. absent: Irregular, Unequal - ENT Exam ENT Exam: Mucous Membranes Moist, Normal Exam, Normal Oropharynx - Neck Exam Neck exam: Positive for: Normal Inspection. Negative for: Lymphadenopathy, Thyromegaly - Respiratory Exam Respiratory Exam: Clear to Auscultation Bilateral, NORMAL BREATHING PATTERN. absent: Prolonged Expiratory Phase, Respiratory Distress - Cardiovascular Exam Cardiovascular Exam: REGULAR RHYTHM, RRR, +S1, +S2. absent: Gallop, Rubs - GI/Abdominal Exam GI & Abdominal Exam: Normal Bowel Sounds, Soft. absent: Hypoactive Bowel Sounds , Organomegaly, Tenderness - Extremities Exam Extremities exam: Positive for: normal inspection. Negative for: joint swelling , pedal edema, tenderness - Back Exam Back exam: NORMAL INSPECTION. absent: CVA tenderness (L), CVA tenderness (R) - Neurological Exam Neurological exam: Alert, CN II-XII Intact, Normal Gait, Oriented x3 - Psychiatric Exam Psychiatric exam: Normal Affect, Normal Mood - Skin Skin Exam: Dry, Intact, Normal Color Discharge Plan - Discharge Medications Prescriptions: Moxifloxacin [Avelox] 400 mg PO DAILY #4 tab - Follow Up Plan Condition: FAIR Disposition: HOME/ ROUTINE Instructions: Moxifloxacin (By mouth), Chest Pain (DC), Chest Pain (GEN), Heart Healthy Diet (DC), Diabetes Mellitus Type 2 in Adults (DC), Hypertension ( DC) Additional Instructions: Patient is stable for discharge per Dr. Fuller. Patient should: 1. Resume all medications as outlined in this document. Additionally, patient should take the new medications listed below (scripts provided). 2. Please make an appointment and follow up with your Primary Doctor within one week of discharge. 3. Please discuss your XRay finding of Pleural thickening with your PMD. You may have had prior imaging performed at [facility]. 4. Please followup with your Farrowing Manager regarding Chronic Renal Insufficiency. Patient should return to ED immediately if symptoms return or worsen. Instructions discussed with patient who understood and agreed. Newly prescribed medications: Avelox 400mg Oral daily #4 (take for 4 days)
--- NOTE | 2017-07-22 23:35 | CARD ---
APPROVED REPORT EKG Measurement Heart [id number] <Conclusion> Normal sinus rhythm T wave abnormality, consider anterior ischemia Prolonged QT Abnormal ECG
== END 2017-07-20 18:00 | disposition home or self-care (01) ==
LOC: C.ER 11:46 → C.9E 15:47 → C.6T 18:59
PROVIDERS: ADMIT Internal Medicine; ATTEND Internal Medicine
DX: J40 Bronchitis, not specified as acute or chronic (principal); I51.7 Cardiomegaly; I70.0 Atherosclerosis of aorta; E11.22 Type 2 diabetes mellitus with diabetic chronic kidney disease; N18.9 Chronic kidney disease, unspecified; I12.9 Hypertensive chronic kidney disease with stage 1 through stage 4 chronic kidney disease, or unspecified chronic kidney disease; E78.00 Pure hypercholesterolemia, unspecified; E03.9 Hypothyroidism, unspecified; F32.9 Major depressive disorder, single episode, unspecified; D64.9 Anemia, unspecified; F03.90 Unspecified dementia, unspecified severity, without behavioral disturbance, psychotic disturbance, mood disturbance, and anxiety; Z79.899 Other long term (current) drug therapy; Z79.82 Long term (current) use of aspirin; Z79.84 Long term (current) use of oral hypoglycemic drugs
CPT/HCPCS: 36415; 71046; 80053; 81001; 82550; 82553; 82948; 84484; 85025; 85610; 85730; 87804; 93005; 94640; 96365; 96372; 99285; G0378; J1644; J2280

== ENCOUNTER 2018-11-11 12:12 | Outpatient (CLI) | payer OTHER | END 2018-11-11 12:13 | disposition home or self-care (01) | LOC: C.PAT 12:12 | DX: Z12.11 Encounter for screening for malignant neoplasm of colon (principal) ==

== ENCOUNTER 2018-11-12 10:30 | Day surgery (SDC) | payer OTHER ==
[2018-11-12 10:54] VITALS: BMI 30.9
[2018-11-12] MEDS ORDERED: Lactated Ringer's 500 ML IV ONE (12:41)
[2018-11-12] MEDS ORDERED: Propofol 10 mg/ml Inj (20 ML) ONE ×2 (12:46→13:05)
[2018-11-12] MEDS ORDERED: Etomidate 20 mg/10ml Inj IV ONE (12:46)
[2018-11-12 12:51] VITALS: O2SAT 100
[2018-11-12 13:41] VITALS: TEMP 96.8
[2018-11-12 14:26] VITALS: BP 140/68; PULSE 59; RESP 11
== END 2018-11-12 14:24 | disposition home or self-care (01) ==
LOC: C.ENDO 10:30
PROVIDERS: ATTEND Internal Medicine Gastroenterology
DX: Z12.11 Encounter for screening for malignant neoplasm of colon (principal); K57.30 Diverticulosis of large intestine without perforation or abscess without bleeding; K64.1 Second degree hemorrhoids; E11.22 Type 2 diabetes mellitus with diabetic chronic kidney disease; I12.9 Hypertensive chronic kidney disease with stage 1 through stage 4 chronic kidney disease, or unspecified chronic kidney disease; N18.9 Chronic kidney disease, unspecified
CPT/HCPCS: 45378; 82948; J2704; J7120